=== PATIENT | male | born 1970 | race Caucasian/White ===

== ENCOUNTER 2020-09-05 10:28 | Outpatient (CLI) | payer BC, SELFPAY ==
--- NOTE | ~2020-09-05 | XR_ITS ---
EXAMINATION: XR chest 2V DATE: 09/05/2020 10:55 INDICATION: Shortness of breath. TECHNIQUE: Frontal and lateral views of the chest were obtained. COMPARISON: None. FINDINGS: The chest demonstrates clear lungs without pneumonia, pleural effusion, or pneumothorax. Th e heart size is normal. There is an old healed fracture of left clavicle. IMPRESSION: 1. No acute cardiopulmonary disease. Reviewed, dictated and finalized at location [facility]
== END 2020-09-05 10:29 | disposition home or self-care (01) ==
LOC: ANHIMG 10:42
PROVIDERS: PCP Physician Assistant; Visit Provider Physician Assistant
DX: R06.09 Other forms of dyspnea (principal)
CPT/HCPCS: 71046

== ENCOUNTER 2020-09-12 08:19 | Outpatient (CLI) | payer BC, SELFPAY ==
--- NOTE | 2020-09-12 | EST_ITS ---
Patient Info Name: Merritt Luna Age: 50 years : 1970 Gender: Male Ht: 70 in Wt: 205 lbs BSA: 2.17 m2 HR: 75 bpm BP: 152 / 83 mmHg Exam Date: 09/12/2020 9:12 AM Exam Location: [facility] Patient Status: Outpatient Admit Date: 09/12/2020 Staff Ordering Physician: MustaphaHenrietta Attending Provider: Mustapha, Henrietta KOWALSKI Exercise Technologist: Kendy Jackson [facility] Exercise Physician: Gopi Bryan DO Exam Type: CA stress test treadmill Study Info Indications R06.02 - Shortness of breath A treadmill exercise stress test was performed. Summary 1. 1. Negative Socrates exercise stress test for ischemic ST changes by ECG criteria. 2. 2. Good functional capacity, achieving 10 METs of workload. 3. 3. Appropriate HR response to exercise. 4. 4. Appropriate HR recovery at 1 minute post exercise. 5. 5. No imaging with stress testing. 6. 6. Patient informed of the above results. Protocol: [facility] Stress ECG Details Stage: REST Duration (min): 1 min : 46 sec Speed (mph): 0.0 Grade (%): 0 HR (bpm): 71 SBP (mmHg): 152 DBP (mmHg): 83 METS: --- Stage: REST Duration (min): 8 min : 58 sec Speed (mph): 0.0 Grade (%): 0 HR (bpm): 87 SBP (mmHg): 152 DBP (mmHg): 83 METS: --- Stage: STAGE 1 Duration (min): 1 min : 0 sec Speed (mph): 1.7 Grade (%): 10 HR (bpm): 119 SBP (mmHg): 152 DBP (mmHg): 83 METS: --- Stage: STAGE 1 Duration (min): 2 min : 0 sec Speed (mph): 1.7 Grade (%): 10 HR (bpm): 124 SBP (mmHg): 152 DBP (mmHg): 83 METS: --- Stage: STAGE 1 Duration (min): 3 min : 0 sec Speed (mph): 1.7 Grade (%): 10 HR (bpm): 124 SBP (mmHg): 152 DBP (mmHg): 83 METS: --- Stage: STAGE 1 Duration (min): 3 min : 11 sec Speed (mph): 1.7 Grade (%): 10 HR (bpm): 123 SBP (mmHg): 152 DBP (mmHg): 83 METS: --- Stage: STAGE 2 Duration (min): 0 min : 48 sec Speed (mph): 2.5 Grade (%): 12 HR (bpm): 119 SBP (mmHg): 152 DBP (mmHg): 83 METS: --- Stage: STAGE 2 Duration (min): 1 min : 48 sec Speed (mph): 2.5 Grade (%): 12 HR (bpm): 140 SBP (mmHg): 152 DBP (mmHg): 83 METS: --- Stage: STAGE 2 Duration (min): 2 min : 49 sec Speed (mph): 2.5 Grade (%): 12 HR (bpm): 144 SBP (mmHg): 166 DBP (mmHg): 98 METS: --- Stage: STAGE 2 Duration (min): 2 min : 48 sec Speed (mph): 2.5 Grade (%): 12 HR (bpm): 144 SBP (mmHg): 166 DBP (mmHg): 98 METS: --- Stage: STAGE 3 Duration (min): 0 min : 59 sec Speed (mph): 3.4 Grade (%): 14 HR (bpm): 151 SBP (mmHg): 193 DBP (mmHg): 97 METS: --- Stage: STAGE 3 Duration (min): 1 min : 59 sec Speed (mph): 3.4 Grade (%): 14 HR (bpm): 157 SBP (mmHg): 193 DBP (mmHg): 97 METS: --- Stage: AV
== END 2020-09-12 08:20 | disposition home or self-care (01) ==
PROVIDERS: PCP Physician Assistant; Visit Provider Physician Assistant
DX: R06.09 Other forms of dyspnea (principal)
CPT/HCPCS: 93017